=== PATIENT | male | born 1965 | race Caucasian/White ===

== ENCOUNTER 2018-05-15 09:52 | Outpatient (REF) | payer OTHER, SELFPAY ==
[2018-05-15 13:35] LABS: HCT 45.8 % (40.0-50.0); HGB 16.1 g/dL (13.5-17.5); Mean Corp. HGB Concentration 35.2 g/dL (32.0-36.0); Mean Corpuscular Volume 85.4 fL (80-95); Mean Platelet Volume 12.3 fL (8.0-11.0); Platelet Count 136 x1000/uL (130-400); RBC 5.36 m/cumm (4.50-6.00); RBC Distribution Width 13.7 % (11.8-14.1); White Blood Cell Count 5.01 k/cumm (4.4-10.8)
[2018-05-15 14:38] LABS: ALT 53 U/L (12-78); AST 31 U/L (15-37); Albumin 4.3 g/dL (3.4-5.0); Alkaline Phosphatase 110 U/L (46-116); Anion Gap 7.6 mmol/L (3-11); BUN 19 mg/dL (7-18); Bilirubin, Total 0.8 mg/dL (0.2-1.0); CO2 27.4 mmol/L (21.0-32.0); CREATININE 0.95 mg/dL (0.70-1.30); Calcium 8.8 mg/dL (8.5-10.1); Chloride 104 mmol/L (98-107); Glucose 195 mg/dL (70-100); Potassium 3.9 mmol/L (3.5-5.1); Sodium 139 mmol/L (136-145); TSH (W/Ref FT4) 1.09 uIU/mL (0.358-3.74); Total Protein 7.5 g/dL (6.4-8.2)
[2018-05-15 15:33] LABS: Ferritin 391 ng/mL (8-388)
[2018-05-16 09:54] LABS: Hepatitis B Surface Ag Negative (NEGAT)
[2018-05-16 10:23] LABS: HIV-1/2 Ag & Ab Screen Negative (NEGAT)
== END 2018-05-15 10:12 ==
LOC: NCHCN 09:52
PROVIDERS: PCP Family Medicine; Visit Provider Family Medicine
DX: E04.2 Nontoxic multinodular goiter (principal); R74.0 Nonspecific elevation of levels of transaminase and lactic acid dehydrogenase [LDH]; D69.6 Thrombocytopenia, unspecified; Z11.59 Encounter for screening for other viral diseases; Z11.4 Encounter for screening for human immunodeficiency virus [HIV]
CPT/HCPCS: 80053; 85027; 86706; 87340; 87389; 82728; 84443

== ENCOUNTER 2018-05-22 00:30 | Outpatient (CLI) | payer OTHER, SELFPAY ==
--- NOTE | 2018-05-22 08:06 | DI.US_ITS ---
SYMPTOM/DIAGNOSIS: MULTI NODULAR THYROID GOITER, E04.2 THYROID ULTRASOUND: The right thyroid lobe measures 5.6 by 2.0 by 2.4 cm. In the mid pole, there is a complex nodule measuring 10 by 7.9 mm. In the lower pole, there is a 2.3 by 1.3 by 1.6 cm. solid nodule, both having mild color flow. The isthmus is 3 mm. in thickness. There are two tiny nodules in the isthmus. The left thyroid lobe measures 5.2 by 1.7 by 2.0 cm. A mid pole nodule measures 7 by 3 by 5 mm. and is avascular. A second somewhat inferior nodule measures 6 by 4 by 5 mm. and is solid and avascular. A lower pole left thyroid nodule is solid measuring 1.8 by 1.0 by 1.7 cm. There is some color flow in this region. SUMMARY: Findings consistent with a multi nodular thyroid gland. The dominant nodule is in the lower pole of the right thyroid lobe measuring 2.3 by 1.3 by 1.6 cm. and is solid with some color flow.
== END 2018-05-22 00:50 ==
PROVIDERS: PCP Family Medicine; Visit Provider Family Medicine
DX: E04.2 Nontoxic multinodular goiter (principal)
CPT/HCPCS: 76536

== ENCOUNTER 2018-06-21 09:21 | Emergency (ER) | payer OTHER, SELFPAY ==
[2018-06-21] VITALS (48 sets, daily range): BP systolic 116–128; BP diastolic 64–81; PULSE 58–82; RESP 11–27; TEMP 36.7; O2SAT 91–98
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
[2018-06-21 10:32] LABS: Abs Immature Grans 0.02 k/cumm (0.0-0.09); Absolute Basophil Count 0.02 k/cumm (0.0-0.2); Absolute Eosinophil Count 0.07 k/cumm (0.0-0.7); Absolute Lymphocyte Count 1.19 k/cumm (1.2-3.4); Absolute Monocyte Count 0.34 k/cumm (0.11-0.7); Absolute Neutrophil Count 3.87 k/cumm (1.2-6.7); Basophils % 0.4; Eosinophils % 1.3; HCT 45.2 % (40.0-50.0); HGB 16.2 g/dL (13.5-17.5); Immature Grans % 0.4; Lymphocytes % 21.6; Mean Corp. HGB Concentration 35.8 g/dL (32.0-36.0); Mean Corpuscular Hemoglobin 30.5 pg (27.0-33.0); Mean Corpuscular Volume 85.1 fL (80-95); Mean Platelet Volume 11.7 fL (8.0-11.0); Monocytes % 6.2; Neutrophils % 70.1; Platelet Count 132 x1000/uL (130-400); RBC 5.31 m/cumm (4.50-6.00); RBC Distribution Width 13.2 % (11.8-14.1); White Blood Cell Count 5.51 k/cumm (4.4-10.8)
[2018-06-21 10:46] LABS: ALT 63 U/L (12-78); AST 35 U/L (15-37); Albumin 4.1 g/dL (3.4-5.0); Alkaline Phosphatase 76 U/L (46-116); Anion Gap 10.6 mmol/L (3-11); BUN 16 mg/dL (7-18); Bilirubin, Total 0.6 mg/dL (0.2-1.0); CO2 26.4 mmol/L (21.0-32.0); Chloride 105 mmol/L (98-107); Glucose 115 mg/dL (70-100); Magnesium 2.2 mg/dL (1.8-2.4); Potassium 4.2 mmol/L (3.5-5.1); Sodium 142 mmol/L (136-145); Total Protein 7.6 g/dL (6.4-8.2); Troponin I < 0.02 ng/mL (0.00-0.06)
[2018-06-21 15:44] LABS: Troponin I < 0.02 ng/mL (0.00-0.06)
[2018-06-21 15:49] LABS: TSH (W/Ref FT4) 1.45 uIU/mL (0.358-3.74)
== END 2018-06-21 16:45 | disposition home or self-care (01) ==
PROVIDERS: Emergency Provider Student in an Organized Health Care Education/Training Program; PCP Family Medicine
DX: R42 Dizziness and giddiness (principal); I25.10 Atherosclerotic heart disease of native coronary artery without angina pectoris; Z95.5 Presence of coronary angioplasty implant and graft
CPT/HCPCS: 36415; 80053; 93005; 93225; 96360; 96361; 99284; 83735; 84443; 84484; 85025; 93010

== ENCOUNTER 2019-10-09 10:21 | Outpatient (REF) | payer OTHER, SELFPAY ==
[2019-10-09 19:32] LABS: HCT 44.1 % (40.0-50.0); HGB 15.3 g/dL (13.5-17.5); Mean Corp. HGB Concentration 34.7 g/dL (32.0-36.0); Mean Corpuscular Hemoglobin 29.5 pg (27.0-33.0); Mean Platelet Volume 12.5 fL (8.0-11.0); Platelet Count 120 x1000/uL (130-400); RBC 5.19 m/cumm (4.50-6.00); White Blood Cell Count 5.12 k/cumm (4.4-10.8)
[2019-10-09 19:51] LABS: Hemoglobin A1C 8.1 % (3.8-5.6)
[2019-10-09 20:09] LABS: ALT 63 U/L (16-63); AST 30 U/L (15-37); Albumin 4.2 g/dL (3.4-5.0); Alkaline Phosphatase 104 U/L (46-116); Anion Gap 9.6 mmol/L (3-11); BUN 13 mg/dL (7-18); Bilirubin, Total 0.8 mg/dL (0.2-1.0); CO2 28.4 mmol/L (21.0-32.0); CREATININE 0.86 mg/dL (0.70-1.30); Calcium 8.6 mg/dL (8.5-10.1); Chloride 103 mmol/L (98-107); Glucose 216 mg/dL (74-106); Potassium 3.9 mmol/L (3.5-5.1); Sodium 141 mmol/L (136-145); TSH (W/Ref FT4) 1.18 uIU/mL (0.36-3.74); Vitamin B12 681 pg/mL (193-986)
== END 2019-10-09 10:41 ==
LOC: NCHCN 10:21
PROVIDERS: PCP Family Medicine; Visit Provider Family Medicine
DX: D69.6 Thrombocytopenia, unspecified (principal); E04.2 Nontoxic multinodular goiter; E11.9 Type 2 diabetes mellitus without complications; R74.0 Nonspecific elevation of levels of transaminase and lactic acid dehydrogenase [LDH]
CPT/HCPCS: 80053; 85027; 82607; 83036; 84443

== ENCOUNTER 2020-05-14 09:37 | Emergency (ER) | payer SELFPAY ==
[2020-05-14 09:39] VITALS: BP 150/87; PULSE 79; RESP 14; O2SAT 99
--- NOTE | 2020-05-14 09:51 | ED.GENADUL_ITS ---
Discharge Plan Disposition Patient Disposition: HOME Condition: Stable Discharge Details Clinical Impression: Pain of right forearm Primary Care Provider: Jeramy Corrigan ED Provider: Maurilio Roy Home Meds and New Rx's Prescriptions: Continued omega 4-ajc-zhm-fish oil 1 EACH capsule 1 ea PO DAILY RF: 0 atorvastatin [Lipitor] 80 MG tablet 80 mg PO DAILY RF: 0 metoprolol succinate 50 MG tablet extended release 24 hr 50 mg PO DAILY RF: 0 aspirin [Aspir-Low] 81 MG tablet,delayed release (DR/EC) 81 mg PO DAILY RF: 0 multivitamin Tablet 1 tab PO DAILY RF: 0 Discharge Instructions Additional Instructions: I suspect your pain is from inflammation of the tendons from the injury yesterday your xray did not show any broken bones or dislocation if pain continues in a week call orthopedics if you have severe worsening pain or trouble moving the joints return to the emergency department for reevaluation Referrals: Willard Puente MD [ [facility] STAFF PHYSICIAN] - Medical Decision Making 54 yo male states he was lifting a heavy crate yesterday with his arms and felt a pop in his right forearm area. Denies falls or trauma and states pain is better today. He has no swelling, normal sensation, normal pulses and full rom of the shoulder, elbow, wrist and hand with 5/5 strength throughout. Does have tenderness on lateral forearm which is likely tendonitis, no findings on exam to suggest tendon rupture. Will xray to evaluate for fx/dislocation but feel unlikely this to be the cause of his symptoms xray negative, still remains with full rom. Suspect tendonitis, will have him f/u with ortho if pain not improved within a week Differential Diagnosis Differential Diagnosis: tendonitis, fracture, dislocation Imaging Data Radiologic Study: Attestation: I personally reviewed and interpreted this imaging study as follows: Imaging: X-Ray Radiologist's impression: no acute findings HPI General Mode of arrival: ambulatory . Date/Time Provider Initiated Documentation: 05/14/20 09:37 . Limitations to Documentation: no limitations . Information obtained by: patient . History of Present Illness 54 year old M presents to the emergency department with the chief complaint of right forearm pain, described as moderate, with intensity rated at 4. Quality is described as aching, and is localized to the right and upper extremity. Patient reports no radiation. Patient started experiencing this day(s) (1) and it has been constant. No relieving factors improve symptom(s), No exacerbating factors reported . Patient notes no other symptoms.. Related Data Home Medications Medication Instructions Recorded Confirmed omega 4-fsf-zia-fish oil 1 ea PO DAILY 03/29/13 05/14/20 aspirin [Aspir-Low] 81 mg PO DAILY 02/23/14 05/14/20 atorvastatin [Lipitor] 80 mg PO DAILY 02/23/14 05/14/20 metoprolol succinate 50 mg PO DAILY 02/23/14 05/14/20 multivitamin 1 tab PO DAILY 05/14/20 05/14/20 Allergies Allergy/AdvReac Type Severity Reaction Status Date / Time fenofibrate Allergy Intermediate chest Unverified 05/14/20 09:45 tightness/SOB lisinopril Allergy Mild Unverified 05/14/20 09:45 General Stated Complaint: Orthopedic MAIA: 4 Review of Systems All systems reviewed & are unremarkable except as noted in HPI and below Constitutional Constitutional: Denies chills, Denies fever(s) and Denies weakness Cardiovascular Cardiovascular: Denies chest pain and Denies dyspnea Respiratory Respiratory: Denies cough and Denies dyspnea Gastrointestinal Gastrointestinal: Denies abdominal pain, Denies nausea and Denies vomiting Musculoskeletal Musculoskeletal: Denies joint swelling Neurologic Neurologic: Denies weakness Psychiatric Psychiatric: Denies depression [facility] Medical History (Updated 05/14/20 @ 10:39 by Maurilio Roy MD) CAD (coronary artery disease) History of ST elevation myocardial infarction (STEMI) 2012 Thrombocytopenia Surgical History Colonoscopy - MAC (11/07/16) Social History Smoking/Tobacco Use Status: Never Alcohol Intake: never Drug use: Never Substance use type: does not use Do you feel safe at home: Yes Do you feel safe in your relationship?: Yes Exam Const General: no acute distress Orientation: alert HENMT Head: normal to inspection Ears: external ears normal General nose exam: external nose normal Mouth: moist mucous membranes Eyes General: appearance normal, both eyes and all related structures Neck Neck: normal visual inspection Resp Effort & Inspection: normal respiratory effort and able to speak in complete sentences Cardio Rate: regular rate Skin General skin exam: no rashes or lesions noted Neuro General: patient alert and patient oriented x3 Extrem General: normal to inspection Psych Mental Status: mental status grossly normal Course Vital Signs Vital signs: Vital Signs Pulse 79 05/14/20 09:39 Respiratory Rate 14 05/14/20 09:39 Blood Pressure 150/87 H 05/14/20 09:39 Pulse Oximetry 99 05/14/20 09:39 Temperature Source Skin 05/14/20 09:39 Pulse 79 05/14/20 09:39 Respiratory Rate 14 05/14/20 09:39 Respiratory Effort 05/14/20 09:43 Blood Pressure 150/87 H 05/14/20 09:39 Blood Pressure Position Sitting 05/14/20 09:39 Pulse Oximetry 99 05/14/20 09:39 Oxygen Delivery Method Room Air 05/14/20 09:39 Oxygen Flow Rate 0 05/14/20 09:39 Pain Level 5 05/14/20 09:39 Comment used arnica gel yesterday and this morning 05/14/20 09:39
--- NOTE | 2020-05-14 10:21 | DI.RAD_ITS ---
EXAM: XR FOREARM RT CLINICAL HISTORY: pain s/p lifting yesterday. TECHNIQUE: 2D digital imaging was performed. COMPARISON: No exams were available for comparison FINDINGS: BONES: No acute fracture is present. No bony destructive lesion is seen. Visualized portion of elbow and wrist joints are unremarkable. SOFT TISSUE: Normal. IMPRESSION: Unremarkable radiographs of the right forearm. DATA REPOSITORY: RADIATION DOSE DELIVERED:
== END 2020-05-14 10:43 | disposition home or self-care (01) ==
PROVIDERS: Emergency Provider Emergency Medicine; PCP Family Medicine
DX: M79.631 Pain in right forearm (principal); X50.0XXA Overexertion from strenuous movement or load, initial encounter
CPT/HCPCS: 99283; 73090; 99282

== ENCOUNTER 2021-02-17 17:01 | Outpatient (REF) | payer OTHER, SELFPAY ==
[2021-02-17 13:38] LABS: HCT 46.5 % (40.0-50.0); HGB 16.3 g/dL (13.5-17.5); MCHC 35.1 % (32.0-36.0); MCV 85.6 fL (80-95); MPV 12.1 fL (8.0-11.0); Platelet Count 124 10^3/uL (130-400); RBC 5.43 10^6/uL (4.36-5.78); RDW 12.9 % (11.8-14.1); RDW-SD 39.8 fL; WBC 5.05 10^3/uL (4.4-10.8)
[2021-02-17 14:16] LABS: ALT 53 U/L (16-63); AST 26 U/L (15-37); Albumin 4.2 g/dL (3.4-5.0); Alkaline Phosphatase 92 U/L (46-116); Anion Gap 11.5 mmol/L (3-11); BUN 14 mg/dL (7-18); CO2 25.5 mmol/L (21.0-32.0); CREATININE 0.9 mg/dL (0.70-1.30); Chloride 104 mmol/L (98-107); Glucose 271 mg/dL (74-106); Sodium 141 mmol/L (136-145); Total Protein 7.1 g/dL (6.4-8.2)
== END 2021-02-17 17:02 | disposition home or self-care (01) ==
LOC: NCHCN 17:01
PROVIDERS: PCP Family Medicine; Visit Provider Family Medicine
DX: E04.2 Nontoxic multinodular goiter (principal)
CPT/HCPCS: 80053; 85027

== ENCOUNTER 2021-04-07 10:13 | Outpatient (CLI) | payer OTHER, SELFPAY ==
--- NOTE | 2021-04-07 10:00 | DI.RAD_ITS ---
Exam(s) XR ELBOW RT COMPLETE EXAM: XR ELBOW RT COMPLETE CLINICAL HISTORY: Rupture of right biceps tendon. TECHNIQUE: 2D digital imaging was performed. COMPARISON: No exams were available for comparison FINDINGS: There is no evidence of fracture nor joint effusion. No swelling of the olecranon bursa. Some swell ing is seen in the soft tissues dorsal to the forearm bones but no fracture or radiopaque foreign bod y. Epicondyles appear unremarkable. Radial head and capitellum appear unremarkable. IMPRESSION: No significant radiograph findings in the elbow joint.. Given the history here, there is no obvious osseous abnormality at the level of the radial biceps tuberosity. Also no joint effusion. DATA REPOSITORY: RADIATION DOSE DELIVERED:
== END 2021-04-07 10:14 | disposition home or self-care (01) ==
LOC: DIORS 10:13
PROVIDERS: PCP Family Medicine; Visit Provider Student in an Organized Health Care Education/Training Program
DX: M66.821 Spontaneous rupture of other tendons, right upper arm (principal)
CPT/HCPCS: 73080

== ENCOUNTER 2021-06-02 06:59 | Outpatient (CLI) | payer OTHER, SELFPAY ==
--- NOTE | 2021-06-02 | DI.MRI_ITS ---
Exam(s) MR UPPER JOINT RT WO EXAM: MR UPPER JOINT RT WO CLINICAL HISTORY: DISTAL BICEPS RUPTURE,S46.211S TECHNIQUE: Multiplanar multisequence MRI of the right elbow region was performed. COMPARISON: Plain films of 04/07/2021 reviewed FINDINGS: MARROW:There is no evidence of fracture or bone contusion. Radial head appears unremarkable as does the capitellum. EPICONDYLES: No intraosseous signal abnormality the chondral off. No obvious tears the flexor and ex tensor tendons. COLLATERAL LIGAMENTS: No tears evident ELBOW JOINT: Small amount of increased joint fluid. No loose intra-articular body seen. No osteocho ndral defects evident in the capitellum and trochlea. TENDONS: Triceps tendon is intact. Brachialis tendon is intact. Biceps tendon exhibits abnormal intrasubstance signal consistent with high-grade partial tearing. A few strands are seen reaching the radial tuberosity. There is no retraction of the musculotendinous junction. IMPRESSION: 1. There is high-grade partial tearing of the biceps tendon insertion on the radial tuberosity. Does not appear completely avulsed and there is no prominent retraction musculotendinous junction. 2. Small elbow joint effusion. No osteochondral defects. No loose intra-articular bodies. DATA REPOSITORY:
== END 2021-06-02 07:19 ==
PROVIDERS: PCP Family Medicine; Visit Provider Student in an Organized Health Care Education/Training Program
DX: S46.211A Strain of muscle, fascia and tendon of other parts of biceps, right arm, initial encounter (principal); X58.XXXA Exposure to other specified factors, initial encounter
CPT/HCPCS: 73221

== ENCOUNTER 2021-08-18 01:15 | Outpatient (CLI) | payer OTHER, SELFPAY ==
[2021-08-18 11:01] LABS: Source Nasal/Nares
[2021-08-18 14:02] LABS: COVID-19 PCR Negative (Negative)
== END 2021-08-18 01:16 | disposition home or self-care (01) ==
LOC: LBO 01:16
PROVIDERS: PCP Family Medicine; Visit Provider Student in an Organized Health Care Education/Training Program
DX: Z20.822 Contact with and (suspected) exposure to COVID-19 (principal)
CPT/HCPCS: 87635

== ENCOUNTER 2021-08-20 09:34 | Day surgery (SDC) | payer OTHER, SELFPAY ==
--- NOTE | 2021-08-20 07:31 | ROE_ITS ---
Operative Note Operative Note POST-OP DIAGNOSIS: same SURGEON: Celso Greenfield MAINTENANCE JOURNEYMAN: Mal Lombardo Refer to Anesthesia Record Patient was transported to: PACU Patient's condition: stable Indications: Please see complete medical record for details. Procedure Description: In the operating room, [general] anesthesia was induced. The patient was positioned [supine] on the operating room table. All bony prominences were well-padded. Preoperative antibiotics were administered. The [site] was prepped and draped in the usual sterile fashion. The correct patient, procedure, and side of the procedure were all verified prior to incision. [procedure description] The patient awoke from anesthesia without complication and was transferred to the recovery room in a stable condition.
[2021-08-20 09:54] VITALS: BP 121/75; PULSE 77; RESP 16; TEMP 36.4; O2SAT 96
[2021-08-20] MEDS: Lactated Ringers 1,000 ML 100 ML IV (10:26)
--- NOTE | 2021-08-20 11:20 | ANES.PREOP_ITS ---
General Info Date of Service Date Performed: 08/20/21 Height: 5 ft 8 in Weight: 85.5 kg Body Mass Index (BMI): 28.6 Surgical Procedure: Operation Date: 08/20/21 10:40 Proposed Procedures Side Surgeon p Elbow Bicep Tendon Repair w/possible allograft augmentation Right Celso Greenfield MD Meds Allergies and Home Medications Allergies Allergy/AdvReac Type Severity Reaction Status Date / Time fenofibrate Allergy Intermediate chest Verified 08/20/21 09:44 tightness/SOB lisinopril Allergy Mild Verified 08/20/21 09:44 Home Medication Medication Instructions Recorded omega 3-wiw-bdb-fish oil 1 ea PO DAILY 03/29/13 aspirin [Aspir-Low] 81 mg PO DAILY 02/23/14 atorvastatin [Lipitor] 80 mg PO DAILY 02/23/14 metoprolol succinate 50 mg PO DAILY 02/23/14 multivitamin 1 tab PO DAILY 05/14/20 metformin 500 mg PO BID 08/20/21 Current Visit Medications: Current Medications Generic Name Dose Route Start Last Admin Trade Name Freq PRN Reason Stop Dose Admin Ringer's Solution 1,000 mls @ 100 mls/hr 08/20/21 06:00 08/20/21 10:26 IV 09/18/21 23:59 100 mls/hr INFUSION ROBE Administration Cefazolin Sodium/Dextrose 2 gm in 50 mls @ 100 mls/hr 08/20/21 06:00 Ancef Duplex IVPB 09/18/21 23:59 PREOP ROBE IV Miscellaneous Supplies 1 each 08/20/21 06:00 Iv Access IV 09/18/21 23:59 DIRECTED ROBE Naproxen 250 - 500 mg 08/20/21 07:30 Naproxen 500 Mg Tab PO BID PRN PRN Oxycodone HCl 5 - 10 mg 08/20/21 07:30 Oxycodone 5 Mg Tab PO Q4H PRN PRN Sodium Chloride 0 ml 08/20/21 06:00 Normal Saline Flush 10 Ml Syr IV 09/18/21 23:59 PRN PRN Sodium Chloride 0 ml 08/20/21 06:00 Normal Saline 10 Ml Vial IJ 09/18/21 23:59 DIRECTED PRN Sterile Water 0 ml 08/20/21 06:00 Water,Injection,Sterile 10 Ml Vial IJ 01/15/22 23:59 DIRECTED PRN PFSH Active Problems Active Problems: Problem Status Onset Code Rupture of right distal biceps tendon 05/13/20 S46.211A Medical History Medical History (Updated 08/20/21 @ 09:43 by Alonso Jackman) CAD (coronary artery disease) Diabetes History of ST elevation myocardial infarction (STEMI) 2012 F/U with cardiology at [facility] [place] Dr. Katelyn Yost Surgical History Surgical History Colonoscopy - MAC (11/07/16) Tobacco Smoking/Tobacco Use Status: Never Alcohol Alcohol Intake: never Substance Use Substance use: Never Substance use type: does not use Vital Signs and Lab Results Vital Signs Most Recent Vital Signs in EMR: Most Recent Vital Signs Temp Pulse Resp BP Pulse Ox 36.4 C L 77 16 121/75 96 08/20/21 09:54 08/20/21 09:54 08/20/21 09:54 08/20/21 09:54 08/20/21 09:54 Point of Care Results Point of Care Results: Finger Stick Blood Glucose 290 08/20/21 10:14 Lab Results Blood Type / Crossmatch: No Data to Display Complete Blood Count: No Data to Display Complete Metabolic Panel: No Data to Display Liver Function Panel: 2 No Data to Display Coagulation Panel: No Data to Display Cardiac Panel: No Data to Display Arterial Blood Gas: No Data to Display Venous Blood Gas: No Data to Display Pancreas Panel: No Data to Display Thyroid Panel: No Data to Display Infectious Disease: Coronavirus (COVID-19)(PCR) Negative (Negative) 08/18/21 08:40 08/18/21 Coronavirus 2019 Source Nasal/Nares 08/18/21 08:40 08/18/21 Blood Cultures: No Data to Display Toxicology Panel: No Data to Display Anesthesia Assessment and Plan Anesthesia History Personal History: No History of Anesthesia Complications Family History: No Family History of Anesthesia Complications Exercise Tolerance Exercise Tolerance: Metabolic Equivalents>4 Pertinent Negatives Pertinent Negatives: No Symptoms of GERD, No Major Cardiovascular Symptoms or Complaints, No Major Pulmonary Symptoms or Complaints and No History of CVA/TIA Cardiac & Pulmonary Exam Cardiac Exam: Normal S1/S2 Heart Sounds Pulmonary Exam: Clear Bilateral Breath Sounds Implantable Cardiac Device Does patient have a Pacemaker or an ICD?: No Airway Exam Known Difficult Airway: No Mallampati Class: 3 Mouth Opening: Normal (> 3cm) Thyromental Distance: Greater than 3 cm Neck Range of Motion: Full ROM Neck Circumference: Normal Teeth Condition: Normal Dentition ASA Classification ASA Score: ASA 3 Emergency Case?: No NPO Status NPO Status: NPO Clears >2 hours, Solids >8 hours Anesthesia Plan Resuscitation Status: Full Code Anesthesia Technique: IV Regional (Kamini Block) Airway Planned: Endotracheal Tube Monitors Used: Standard Monitors Preoperative Comments:: Hx cardiac stent x 2 in 2013
[2021-08-20 11:44] VITALS: BMI 28.6
[2021-08-20 12:26] LABS: Hemoglobin A1C 8.4 % (<5.7)
--- NOTE | 2021-08-20 13:10 | NUR.NOTE ---
Nursing Note: Increased blood sugar noted. A1C drawn. Level 8.[address] Greenfield. IV discontinued. Up to BR to dress independently. Release to followup appointmet with PMD pending.
--- NOTE | 2021-08-20 13:16 | PDOC.DSDIS_ITS ---
Discharge Plan Disposition Patient Disposition: HOME Condition: Stable Discharge Details Reason For Visit: Right elbow surgery Attending Provider: Celso Greenfield Primary Care Provider: Jeramy Corrigan Home Meds and New Rx's Prescriptions: Continued omega 7-wyt-glp-fish oil 1 EACH capsule 1 ea PO DAILY RF: 0 atorvastatin [Lipitor] 80 MG tablet 80 mg PO DAILY RF: 0 metoprolol succinate 50 MG tablet extended release 24 hr 50 mg PO DAILY RF: 0 aspirin [Aspir-Low] 81 MG tablet,delayed release (DR/EC) 81 mg PO DAILY RF: 0 multivitamin Tablet 1 tab PO DAILY RF: 0 metformin 500 mg Tablet 500 mg PO BID RF: 0 Discharge Instructions Additional Instructions: Left distal biceps tendon repair surgery postponed due to poorly controlled diabetes mellitus. Blood sugar 290. Hemoglobin A1c done today 8.4. Must improve glycemic control prior to surgery. Discussed with Dr. Corrigan who will see you in his office this afternoon. Follow-up with Dr. Greenfield to review options after hemoglobin A1c is improved, ideally less than 7.0. Stand Alone Forms: Anesthesia Discharge Inst., Anes.Nerve Block Instructions Referrals: Celso Greenfield MD [ [facility] STAFF PHYSICIAN] - Discharge Orders Discharge Orders: Discharge Order (Routine); Ordered 08/20/21 Ordered By: Celso Greenfield DS: Diagnosis Discharge Diagnosis (1) Rupture of right distal biceps tendon: Status: Acute
--- NOTE | 2021-08-20 13:26 | NUR.NOTE ---
Escorted out by RN with verbal instructions to see primary care physician today as appointed. Nursing Note:
== END 2021-08-20 13:25 | disposition home or self-care (01) ==
LOC: SUR 09:34
PROVIDERS: Nurse Anesthetist, Certified Registered; PCP Family Medicine; Visit Provider Student in an Organized Health Care Education/Training Program
DX: S46.211A Strain of muscle, fascia and tendon of other parts of biceps, right arm, initial encounter (principal); Z53.8 Procedure and treatment not carried out for other reasons; E11.65 Type 2 diabetes mellitus with hyperglycemia; I25.10 Atherosclerotic heart disease of native coronary artery without angina pectoris; I25.2 Old myocardial infarction
CPT/HCPCS: 36415; 83036; J2250; J2370; J2405

== ENCOUNTER 2021-12-28 04:51 | Outpatient (CLI) | payer OTHER, SELFPAY ==
[2021-12-28 11:58] LABS: Source Nasal/Nares
[2021-12-28 13:59] LABS: COVID-19 PCR Negative (Negative)
== END 2021-12-28 04:52 | disposition home or self-care (01) ==
LOC: LBO 04:52
PROVIDERS: PCP Family Medicine; Visit Provider Student in an Organized Health Care Education/Training Program
DX: Z20.822 Contact with and (suspected) exposure to COVID-19 (principal); Z01.818 Encounter for other preprocedural examination
CPT/HCPCS: 87635

== ENCOUNTER 2021-12-30 07:32 | Day surgery (SDC) | payer OTHER, SELFPAY ==
--- NOTE | 2021-12-30 06:47 | W.PM.OP ---
Date of service: 12/30/21 Time of Service: 11:00 Operative Note Operative Note DATE OF PROCEDURE: 12/30/21 PRE-OP DIAGNOSIS: Right distal biceps rupture POST-OP DIAGNOSIS: same PROCEDURE: Right distal biceps tendon repair, CPT# 47796 SURGEON: Celso Greenfield WRITER TECHNICAL PUBLICATIONS: Mal Lombardo Refer to Anesthesia Record Patient was transported to: PACU Patient's condition: stable Indications: Please see complete medical record for details. Findings: [chronic, high-grade partial] Procedure Description: In the operating room, [general] anesthesia was induced. The patient was positioned [supine] on the operating room table. All bony prominences were well-padded. Preoperative antibiotics were administered. The [site] was prepped and draped in the usual sterile fashion. The correct patient, procedure, and side of the procedure were all verified prior to incision. [procedure description] The patient awoke from anesthesia without complication and was transferred to the recovery room in a stable condition.
--- NOTE | 2021-12-30 06:49 | PDOC.DSDIS_ITS ---
Discharge Plan Disposition Patient Disposition: HOME Condition: Stable Discharge Details Reason For Visit: Right elbow surgery Attending Provider: Celso Greenfield Primary Care Provider: Jeramy Corrigan Home Meds and New Rx's Prescriptions: New naproxen 250 mg tablet 250 - 500 mg PO BID PRNQty: 40 0RF Rx Instructions: take with a meal oxycodone 5 mg tablet 5 - 10 mg PO Q4H MDD 30 mg PRN (Reason: moderate to severe pain) Qty: 18 0RF Continued Januvia 25 mg tablet 25 mg PO DAILY 0RF omega 3-lkt-zig-fish oil 1 EACH capsule 1 ea PO DAILY 0RF atorvastatin [Lipitor] 80 MG tablet 80 mg PO DAILY 0RF metoprolol succinate 50 MG tablet extended release 24 hr 50 mg PO DAILY 0RF aspirin [Aspir-Low] 81 MG tablet,delayed release (DR/EC) 81 mg PO DAILY 0RF multivitamin Tablet 1 tab PO DAILY 0RF metformin 500 mg Tablet 500 mg PO BID 0RF Discharge Instructions Additional Instructions: Surgery: Right distal biceps tendon repair Activity: [NWB] in [Sling / Brace / Splint] [at all times / for comfort] A physical therapy prescription will be provided separately [today / in the office at follow up]. 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 Prescriptions: Resume Aspirin 81 mg daily tomorrow Naproxen 250 mg take 1-2 every 12 hours with a meal as needed for moderate pain Oxycodone 5 mg take 1-2 every 4-6 hours as needed for severe pain You may use [id number] Tylenol (acetaminophen) as needed for mild pain. These pain medications may be taken all at once or in different combinations as needed. Also, recommend Colace (docusate) as a stool softener as surgery and pain medicine cause constipation. Dressings: [Leave splint and dressing in place until follow-up. Keep clean and dry at all times.] [Leave dressing in place for 3 days. May then remove and leave open to air or cover incisions with Band-Aids. May shower after 5 days.] Follow-up: 10-[address] Greenfield Let us know right away if you develop any redness, drainage, fevers, chest pain, or trouble breathing. Do not drink alcohol or drive for at least 24 hours after anesthesia. Please call the office during business hours with any questions or concerns. Referrals: Celso Greenfield MD [ [facility] STAFF PHYSICIAN] - Discharge Orders Discharge Orders: Discharge Order (Routine); Ordered 12/30/21 Ordered By: Celso Greenfield DS: Diagnosis Discharge Diagnosis (1) Rupture of right distal biceps tendon: Status: Acute
[2021-12-30 07:35] VITALS: BP 130/81; PULSE 78; RESP 18; TEMP 36.6; O2SAT 98
--- NOTE | 2021-12-30 09:07 | NUR.NOTE ---
12/30/2021 Pts surgery was cancelled due to pt having current and active shingles and Ashwini Tejada CRNA spoke with pt and pt's . Pt left with at 0910Nursing Note:
== END 2021-12-30 07:33 | disposition home or self-care (01) ==
LOC: SUR 07:33
PROVIDERS: PCP Family Medicine; Visit Provider Student in an Organized Health Care Education/Training Program
PROC: (CPT 24341; principal; 2021-12-30 10:30)
DX: Z53.09 Procedure and treatment not carried out because of other contraindication (principal); B02.9 Zoster without complications

== ENCOUNTER 2022-01-12 01:01 | Outpatient (CLI) | payer OTHER, SELFPAY | END 2022-01-12 01:02 | disposition home or self-care (01) | PROVIDERS: PCP Family Medicine; Visit Provider Student in an Organized Health Care Education/Training Program ==

== ENCOUNTER 2022-03-08 09:55 | Outpatient (REF) | payer OTHER, SELFPAY ==
[2022-03-08 15:35] LABS: HCT 45.6 % (40.0-50.0); HGB 15.6 g/dL (13.5-17.5); MCHC 34.2 % (32.0-36.0); MCV 88 fL (80-95); MPV 11.3 fL (8.0-11.0); Platelet Count 149 10^3/uL (130-400); RDW 12.5 % (11.8-14.1); WBC 6.26 10^3/uL (4.4-10.8)
[2022-03-08 16:05] LABS: ALT 58 U/L (16-63); AST 41 U/L (15-37); Albumin 4.6 g/dL (3.4-5.0); Alkaline Phosphatase 79 U/L (46-116); Anion Gap 14.6 mmol/L (3-11); BUN 24 mg/dL (7-18); Bilirubin, Total 0.9 mg/dL (0.2-1.0); CO2 25.4 mmol/L (21.0-32.0); CREATININE 0.9 mg/dL (0.70-1.30); Calcium 9.1 mg/dL (8.5-10.1); Calculated LDL 29 mg/dL (<100); Chloride 101 mmol/L (98-107); Cholesterol 103 mg/dL (<200); Glucose 160 mg/dL (74-106); HDL Cholesterol 34 mg/dL (40-60); Potassium 3.8 mmol/L (3.5-5.1); Sodium 141 mmol/L (136-145); Total Protein 7.4 g/dL (6.4-8.2); Triglyceride 204 mg/dL (<150)
== END 2022-03-08 09:56 | disposition home or self-care (01) ==
LOC: NCHCN 09:55
PROVIDERS: PCP Family Medicine; Visit Provider Family Medicine
DX: D69.6 Thrombocytopenia, unspecified (principal); E11.9 Type 2 diabetes mellitus without complications; R74.01 Elevation of levels of liver transaminase levels; I25.10 Atherosclerotic heart disease of native coronary artery without angina pectoris
CPT/HCPCS: 80053; 80061; 85027

== ENCOUNTER 2023-01-03 09:50 | Outpatient (REF) | payer OTHER, SELFPAY ==
[2023-01-03 15:46] LABS: ESR 1 mm/hr (0-20)
[2023-01-03 15:51] LABS: COMMENT (LAB VIEW ONLY) 101.17 mg/dL; Microalb ug/mg Crea 15.9 ug/mg Cr
[2023-01-03 15:56] LABS: ALT 53 U/L (16-63); AST 24 U/L (15-37); Albumin 4.3 g/dL (3.4-5.0); Alkaline Phosphatase 84 U/L (46-116); Anion Gap 9.5 mmol/L (3-11); BUN 18 mg/dL (7-18); Bilirubin, Total 0.7 mg/dL (0.2-1.0); CO2 26.5 mmol/L (21.0-32.0); Calcium 8.7 mg/dL (8.5-10.1); Chloride 105 mmol/L (98-107); Estimated GFR 88.33 (mL/min/1.73m2); Glucose 264 mg/dL (74-106); Sodium 141 mmol/L (136-145); Total Protein 7.2 g/dL (6.4-8.2)
== END 2023-01-03 09:51 | disposition home or self-care (01) ==
LOC: NCHCN 09:50
PROVIDERS: PCP Family Medicine; Visit Provider Family Medicine
DX: R61 Generalized hyperhidrosis (principal); R74.01 Elevation of levels of liver transaminase levels; E11.9 Type 2 diabetes mellitus without complications
CPT/HCPCS: 80053; 85652; 82043; 82570

== ENCOUNTER 2023-09-26 12:38 | Outpatient (REF) | payer OTHER, SELFPAY ==
[2023-09-26 15:53] LABS: Hemoglobin A1C 8.2 % (<5.7)
== END 2023-09-26 12:39 | disposition home or self-care (01) ==
LOC: NCHCN 12:38
PROVIDERS: PCP Family Medicine; Visit Provider Family Medicine
DX: E11.9 Type 2 diabetes mellitus without complications (principal)
CPT/HCPCS: 83036

== ENCOUNTER 2023-10-11 13:57 | Emergency (ER) | payer OTHER, SELFPAY ==
--- NOTE | 2023-10-11 14:00 | RT.EKG_ITS ---
APPROVED REPORT Exam: Resting ECG Reason for Exam: lightheadedness Patient Location: E HR:88 bpm ECG Measurements Heart Rate 88 AXIS MT 163 P 45 QRSd 103 QRS 20 QT 353 T 14 QTc 427 Conclusion Sinus rhythm...normal P axis, V-rate 60- 99
[2023-10-11 14:02] VITALS: BP 163/84; PULSE 94; RESP 16; TEMP 36.6; O2SAT 98
[2023-10-11 14:26] LABS: BE (Venous) 1 mmol/L (-2-3); HCO3 (Venous) 26 mmol/L (23-28); O2 Sat (Venous) 76 %; TCO2 (Venous) 22 mmol/L (24-29); pCO2 (Venous) 44 mmHg (41-51); pH (Venous) 7.38 (7.31-7.41); pO2 (Venous) 41 mmHg
[2023-10-11 14:28] LABS: Abs Immature Grans 0.01 10^3/uL (0.0-0.06); Absolute Basophil Count 0.04 10^3/uL (0.0-0.2); Absolute Eosinophil Count 0.07 10^3/uL (0.0-0.7); Absolute Lymphocyte Count 1.52 10^3/uL (1.2-3.4); Absolute Monocyte Count 0.48 10^3/uL (0.1-0.8); Absolute Neutrophil Count 3.97 10^3/uL (1.2-6.7); Basophils % 0.7; Eosinophils % 1.1; HCT 47.8 % (40.0-50.0); HGB 16.9 g/dL (13.5-17.5); Immature Grans % 0.2; MCH 29.8 pg (27.0-33.0); MCHC 35.4 % (32.0-36.0); MCV 84 fL (80-95); MPV 10.7 fL (8.0-11.0); Monocytes % 7.9; Neutrophils % 65.1; Platelet Count 134 10^3/uL (130-400); RBC 5.68 10^6/uL (4.36-5.78); RDW 12.9 % (11.8-14.1); RDW-SD 39.4 fL; WBC 6.09 10^3/uL (4.4-10.8)
[2023-10-11] MEDS: Normal Saline 1,000 ML 1000 ML IV (14:29)
--- NOTE | 2023-10-11 14:37 | ED.GENADUL_ITS ---
HPI General Mode of arrival: ambulatory . Date/Time Provider Initiated Documentation: 10/11/23 13:59 . Limitations to Documentation: no limitations . Information obtained by: patient . History of Present Illness 58 year old M presents to the emergency department with the chief complaint of lightheaded, described as moderate, Patient started experiencing this hour(s) (3) and it has been now resolved. No relieving factors improve symptom(s), No exacerbating factors reported . Patient notes no other symptoms.; denies chest pain and shortness of breath. Patient did receive the following treatments prior to arrival, none Related Data Home Medications Medication Instructions Recorded Confirmed omega 9-jri-gec-fish oil 300 1 ea PO DAILY 03/29/13 10/11/23 mg-1,000 mg capsule aspirin 81 mg tablet,delayed 81 mg PO DAILY 02/23/14 10/11/23 release (Aspir-Low) atorvastatin 80 mg tablet (Lipitor) 80 mg PO DAILY 02/23/14 10/11/23 metoprolol succinate 50 mg 50 mg PO DAILY 02/23/14 10/11/23 tablet,extended release 24 hr multivitamin 1 tab PO DAILY 05/14/20 10/11/23 metformin 500 mg tablet 500 mg PO BID 08/20/21 10/11/23 sitagliptin phosphate 25 mg tablet 25 mg PO DAILY 11/24/21 10/11/23 (Januvia) canagliflozin .ROUTE 10/11/23 glipizide 10 mg tablet, extended mg PO 10/11/23 release 24 hr Allergies Allergy/AdvReac Type Severity Reaction Status Date / Time fenofibrate Allergy Intermediate chest Verified 12/30/21 07:47 tightness/SOB lisinopril Allergy Mild Verified 12/30/21 07:47 General Stated Complaint: Dizzy/Sync MAIA: 3 Review of Systems All systems reviewed & are unremarkable except as noted in HPI and below Constitutional Constitutional: Denies chills, Denies fever(s) and Denies weakness Cardiovascular Cardiovascular: Denies chest pain and Denies dyspnea Respiratory Respiratory: Denies cough and Denies dyspnea Gastrointestinal Gastrointestinal: Denies abdominal pain, Denies nausea and Denies vomiting Musculoskeletal Musculoskeletal: Denies joint swelling Neurologic Neurologic: Denies weakness Exam Const General: no acute distress Orientation: alert HENMT Head: normal to inspection Ears: external ears normal General nose exam: external nose normal Mouth: moist mucous membranes Eyes General: appearance normal, both eyes and all related structures Neck Neck: normal visual inspection Resp Effort & Inspection: normal respiratory effort and able to speak in complete sentences Auscultation: clear to auscultation bilaterally Cardio Rate: regular rate Heart Sounds: no murmurs GI Palpation: soft and nontender Skin General skin exam: no rashes or lesions noted Neuro General: patient alert and patient oriented x3 Extrem General: normal to inspection Psych Mental Status: mental status grossly normal Course Vital Signs Vital signs: Vital Signs Temperature 36.6 C 10/11/23 14:02 Pulse 94 H 10/11/23 14:02 Respiratory Rate 16 10/11/23 14:02 Blood Pressure 163/84 H 10/11/23 14:02 Pulse Oximetry 98 10/11/23 14:02 Temperature 36.6 C 10/11/23 14:02 Temperature Source Oral 10/11/23 14:02 Pulse 94 H 10/11/23 14:02 Respiratory Rate 16 10/11/23 14:02 Blood Pressure 163/84 H 10/11/23 14:02 Blood Pressure Position Sitting 10/11/23 14:02 Pulse Oximetry 98 10/11/23 14:02 Oxygen Delivery Method Room Air 10/11/23 14:02 Oxygen Flow Rate 0 10/11/23 14:02 Pain Level 0 10/11/23 14:02 Lab/Test Results Lab/Test Results: Laboratory Tests Range/Units 10/11/23 14:20 WBC (4.4-10.8) 10^3/uL 6.09 RBC (4.36-5.78) 10^6/uL 5.68 Hgb (13.5-17.5) g/dL 16.9 Hct (40.0-50.0) % 47.8 MCV (80-95) fL 84 MCH (27.0-33.0) pg 29.8 MCHC (32.0-36.0) % 35.4 RDW (11.8-14.1) % 12.9 Plt Count (130-400) 10^3/uL 134 MPV (8.0-11.0) fL 10.7 Immature Gran % 0.2 Neutrophils % 65.1 Lymphocytes % 25.0 Monocytes % 7.9 Eosinophils % 1.1 Basophils % 0.7 Nucleated RBC % (0.0-0.3) % 0.0 Absolute Neutrophils (1.2-6.7) 10^3/uL 3.97 Absolute Lymphocytes (1.2-3.4) 10^3/uL 1.52 Absolute Monocytes (0.1-0.8) 10^3/uL 0.48 Absolute Eosinophils (0.0-0.7) 10^3/uL 0.07 Absolute Basophils (0.0-0.2) 10^3/uL 0.04 VBG pH (7.31-7.41) 7.38 VBG pCO2 (41-51) mmHg 44 VBG pO2 mmHg 41 VBG HCO3 (23-28) mmol/L 26 VBG Total CO2 (24-29) mmol/L 22 L VBG O2 Saturation % 76 VBG Base Excess (-2-3) mmol/L 1 Medical Decision Making 58 yo male with hx of CAD with stemi in 2012 and had 2 stents placed comes in after he had an episode of lightheadedness. He states he started glipizide 2-3 weeks ago and has had some nausea and gi symptoms, noted diarrhea over this past weekend which has improved. He states earlier he had a soft bowel movement, not watery. HE was walking to hi vehicle earlier and got lightheaded, no loc and no chest pain or dyspnea. He denies abdominal pain or vomiting, no fevers. HE is caox4 speaking in full sentences and appears well on exam. Clear lungs no leg swelling no murmurs no focal neurological deficits. Suspect this is medication reaction versus a resolving gastrointestinal illness with some dehydration, will treat with IV fluids and check EKG troponin CBC CMP and reassess Patient stable and asymptomatic, labs unremarkable, given over 3 hours from symptom onset do not feel delta troponin of benefit. Suspect slight dehydration as the cause of his lightheadedness earlier, he will follow-up with his primary care return precautions given Differential Diagnosis Differential Diagnosis: dehydration, medication reaction, electrolyte abnormality Medical Records Medical records reviewed: Yes I reviewed the patient's medical records. Lab Data Lab results reviewed: Yes I reviewed the patient's lab results. ECG Data Attestation: I personally reviewed and interpreted this ECG (s) as follows: Prior ECG tracings: available for review Interpretation: sinus rate of 88 pr 163 no acute stemi Quality:SDOH Health Related Social Needs: No Data to Display [facility] All Active Problems (Updated 10/11/23 @ 15:27 by Maurilio Roy MD) Lightheaded (Acute) Rupture of right distal biceps tendon (Acute 05/13/20) Medical History (Updated 10/11/23 @ 15:27 by Maurilio Roy MD) Diabetes Thrombocytopenia pt. unaware of unaware CAD (coronary artery disease) History of ST elevation myocardial infarction (STEMI) 2012 F[place] [facility] [place] Surgical History History of heart artery stent 2013 Colonoscopy - MAC (11/07/16) Social History Smoking/Tobacco Use Status: Never Smoking risk assessment performed?: Yes Alcohol Intake: never Drug use: Never Substance use type: does not use Current gender identity: male Do you feel safe at home: Yes Do you feel safe in your relationship?: Yes Discharge Plan Disposition Patient Disposition: Home Condition: Stable Discharge Details Clinical Impression: Lightheaded Primary Care Provider: Jeramy Corrigan ED Provider: Maurilio Roy Home Meds and New Rx's Prescriptions: Continued Januvia 25 mg tablet 25 mg PO DAILY Hold Instructions: Changed by Provider omega 2-nmw-fri-fish oil 1 EACH capsule 1 ea PO DAILY atorvastatin [Lipitor] 80 MG tablet 80 mg PO DAILY metoprolol succinate 50 MG tablet extended release 24 hr 50 mg PO DAILY Hold Instructions: Changed by Provider aspirin [Aspir-Low] 81 MG tablet,delayed release (DR/EC) 81 mg PO DAILY multivitamin Tablet 1 tab PO DAILY canagliflozin [Invokana] .ROUTE glipizide 10 mg tablet extended release 24hr PO Patient Comments: TAKE ONE TABLET BY MOUTH EVERY DAY metformin 500 mg Tablet 500 mg PO BID Discharge Instructions Instructions: Lightheadedness (ED) Additional Instructions: Your EKG and blood work did not show concerning findings at this time Follow-up with your primary care provider within 1 to 2 weeks If you feel more ill, have chest pain or difficulty breathing return to the emergency department
[2023-10-11 14:47] LABS: ALT 43 U/L (16-63); AST 26 U/L (15-37); Albumin 4.5 g/dL (3.4-5.0); Alkaline Phosphatase 71 U/L (46-116); Anion Gap 11.3 mmol/L (3-11); BUN 16 mg/dL (7-18); CO2 25.7 mmol/L (21.0-32.0); CREATININE 0.9 mg/dL (0.70-1.30); Calcium 9.2 mg/dL (8.5-10.1); Chloride 104 mmol/L (98-107); Estimated GFR 99.62 (mL/min/1.73m2); Glucose 115 mg/dL (74-106); Magnesium 2.2 mg/dL (1.8-2.4); Potassium 3.9 mmol/L (3.5-5.1); Sodium 141 mmol/L (136-145); Total Protein 7.9 g/dL (6.4-8.2); Troponin I < 50 ng/L (< or =60)
[2023-10-11 15:18] LABS: Bilirubin Negative (Negative); Blood Negative (Negative); Clarity Clear (Clear); Glucose 500 mg/dL (Negative); Ketones 15 mg/dL (Negative); Leukocyte Esterase Negative (Negative); Nitrite Negative (Negative); Specific Gravity 1.025 (1.005-1.025); Urobilinogen 0.2 mg/dL (Up to 0.2)
[2023-10-11 15:39] VITALS: BP 130/81; PULSE 83; RESP 18; TEMP 36.6; O2SAT 95
== END 2023-10-11 15:46 | disposition home or self-care (01) ==
PROVIDERS: Emergency Provider Emergency Medicine; PCP Family Medicine
DX: R42 Dizziness and giddiness (principal); I25.10 Atherosclerotic heart disease of native coronary artery without angina pectoris; I25.2 Old myocardial infarction; E11.9 Type 2 diabetes mellitus without complications; Z95.5 Presence of coronary angioplasty implant and graft; Z79.82 Long term (current) use of aspirin; Z79.84 Long term (current) use of oral hypoglycemic drugs
CPT/HCPCS: 80053; 82805; 93005; 96360; 99284; 81003; 83735; 84484; 85025; 93010

== ENCOUNTER 2024-04-16 20:34 | Outpatient (REF) | payer OTHER, SELFPAY ==
[2024-04-18 20:34] LABS: COMMENT (LAB VIEW ONLY) 24.37 mg/dL; Microalb ug/mg Crea 17.2 ug/mg Cr
== END 2024-04-16 20:35 | disposition home or self-care (01) ==
LOC: NCHCN 20:34
PROVIDERS: PCP Student in an Organized Health Care Education/Training Program; Visit Provider Student in an Organized Health Care Education/Training Program
DX: E11.9 Type 2 diabetes mellitus without complications (principal)
CPT/HCPCS: 82043; 82570